=== PATIENT | male | born 1980 | race Caucasian/White ===

== ENCOUNTER 2018-12-25 09:35 | Emergency (ER) | payer MEDICAID ==
[~2018-12-25] VITALS: Ht 162.6 cm; Wt 85.3 kg
[2018-12-25 09:38] VITALS: BP 146/98; Ht 162.6 cm; Wt 85.3 kg
== END 2018-12-25 11:27 | disposition home or self-care (01) ==
LOC: ED 09:35
DX: L73.9 Follicular disorder, unspecified (principal); E78.5 Hyperlipidemia, unspecified